=== PATIENT | female | born 1950 | race Two or more races ===

== ENCOUNTER 2018-03-10 09:47 | Outpatient (CLI) | payer OTHER ==
[~2018-03-10] VITALS: Ht 152.4 cm; Wt 52.2 kg
== END 2018-03-10 10:00 | disposition home or self-care (01) ==
LOC: OFIC 805 09:47
DX: H72.2X2 Other marginal perforations of tympanic membrane, left ear (principal); H90.72 Mixed conductive and sensorineural hearing loss, unilateral, left ear, with unrestricted hearing on the contralateral side; J31.0 Chronic rhinitis

== ENCOUNTER 2019-01-24 08:42 | Outpatient (CLI) | payer OTHER | END 2019-01-24 08:48 | disposition home or self-care (01) | LOC: MAMO-SONO 08:42 | DX: Z12.31 Encounter for screening mammogram for malignant neoplasm of breast (principal); Z87.898 Personal history of other specified conditions; N64.89 Other specified disorders of breast; M81.0 Age-related osteoporosis without current pathological fracture; E03.8 Other specified hypothyroidism; E78.89 Other lipoprotein metabolism disorders; I10 Essential (primary) hypertension; Z13.820 Encounter for screening for osteoporosis; Z12.11 Encounter for screening for malignant neoplasm of colon ==

== ENCOUNTER → 2019-02-14 | Outpatient (CLI) | payer OTHER | END | disposition home or self-care (01) | LOC: NUCLEAR 13:44 | DX: M81.0 Age-related osteoporosis without current pathological fracture (principal); Z13.820 Encounter for screening for osteoporosis ==

== ENCOUNTER 2019-02-16 07:26 | Outpatient (CLI) | payer OTHER ==
[~2019-02-16] VITALS: Ht 152.4 cm; Wt 52.2 kg
== END 2019-02-16 07:40 | disposition home or self-care (01) ==
LOC: OFIC 805 07:26
DX: H72.2X2 Other marginal perforations of tympanic membrane, left ear (principal); H90.71 Mixed conductive and sensorineural hearing loss, unilateral, right ear, with unrestricted hearing on the contralateral side; J31.0 Chronic rhinitis